=== PATIENT | male | born 1960 | race Caucasian/White ===

== ENCOUNTER 2017-03-20 13:31 | Emergency (ER) | payer OTHER ==
[~2017-03-20] VITALS: Ht 160 cm; Wt 68.0 kg
[~2017-03-20 13:31] MED LIST: ALLERGY10 M1 PO; ANT12.5 PO; COZAAR25 M PO; GLYBURIDE2.5 M PO; JANUVIA100 MG PO; L40 PO; OMEPRAZOLE40 MG PO; PRED-PAK 455 MG PO; PROMETHAZINE D118 ML PO; SIMVASTATIN40 MG PO; TEN25 PO; XARELTO20 M1 PO; [UNRECOGNIZED DRUG - OTHER] NS
[2017-03-20 16:04] VITALS: BP 128/75
== END 2017-03-20 16:04 | disposition home or self-care (01) ==
LOC: ED 13:31
DX: K64.4 Residual hemorrhoidal skin tags (principal); M19.90 Unspecified osteoarthritis, unspecified site; K21.9 Gastro-esophageal reflux disease without esophagitis; E78.00 Pure hypercholesterolemia, unspecified; E11.43 Type 2 diabetes mellitus with diabetic autonomic (poly)neuropathy; K31.84 Gastroparesis; I10 Essential (primary) hypertension; Z79.4 Long term (current) use of insulin; Z79.84 Long term (current) use of oral hypoglycemic drugs

== ENCOUNTER 2017-03-21 14:12 | Emergency (ER) | payer OTHER ==
[2017-03-21 14:36] VITALS: BP 129/84
== END 2017-03-21 16:03 | disposition home or self-care (01) ==
LOC: ED 14:12
DX: K64.4 Residual hemorrhoidal skin tags (principal); K21.9 Gastro-esophageal reflux disease without esophagitis; I10 Essential (primary) hypertension; E11.9 Type 2 diabetes mellitus without complications; E78.5 Hyperlipidemia, unspecified; K57.90 Diverticulosis of intestine, part unspecified, without perforation or abscess without bleeding; M19.90 Unspecified osteoarthritis, unspecified site; Z88.0 Allergy status to penicillin

== ENCOUNTER 2018-09-12 13:51 | Emergency (ER) | payer OTHER ==
[~2018-09-12] VITALS: Ht 157.5 cm; Wt 72.1 kg
[2018-09-12 14:07] VITALS: Ht 157.5 cm; Wt 72.1 kg
[2018-09-12 15:36] LABS: BASOPHIL % 0.7 % (0-2); PLATELET COUNT 211 x10^3mcL (130-400); RED CELL DISTRIBUTION WIDTH 13.9 % (11.5-14.5)
[2018-09-12 15:42] LABS: CARBON DIOXIDE 30.3 mmol/L (21-32); CHLORIDE SERUM 105 mmol/L (98-107); CREATININE SERUM 0.8 mg/dL (0.7-1.3); GFR1 > 60 mL/min; GLUCOSE SERUM 222 mg/dL (74-106); POTASSIUM SERUM 4.4 mmol/L (3.5-5.1); SODIUM SERUM 138 mmol/L (136-145)
[2018-09-12 15:46] LABS: ALKALINE PHOSPHATASE 98 U/L (46-116); ALT/SGPT 60 U/L (16-63); AST/SGOT 40 U/L (15-37); BILIRUBIN TOTAL 0.2 mg/dL (0.20-1.00)
[2018-09-12 15:48] LABS: ALBUMIN 2.5 g/dL (3.4-5.0)
[2018-09-12 17:31] VITALS: BP 135/87
== END 2018-09-12 17:31 | disposition home or self-care (01) ==
LOC: ED 13:51
PROVIDERS: Emergency Medicine
DX: R07.89 Other chest pain (principal); E11.9 Type 2 diabetes mellitus without complications; I10 Essential (primary) hypertension; K21.9 Gastro-esophageal reflux disease without esophagitis; E78.00 Pure hypercholesterolemia, unspecified; I82.409 Acute embolism and thrombosis of unspecified deep veins of unspecified lower extremity
CPT/HCPCS: 36415; 85378

== ENCOUNTER → 2018-12-25 | Outpatient (CLI) | payer OTHER, MEDICAID | END | disposition home or self-care (01) | LOC: US 11:17 | PROC: B54DZZZ Ultrasonography of Bilateral Lower Extremity Veins (ICD-10-PCS; principal; 2018-12-25) | PROC: B44HZZZ Ultrasonography of Bilateral Lower Extremity Arteries (ICD-10-PCS; 2018-12-25) | DX: I73.9 Peripheral vascular disease, unspecified (principal); I83.813 Varicose veins of bilateral lower extremities with pain; I82.409 Acute embolism and thrombosis of unspecified deep veins of unspecified lower extremity ==

== ENCOUNTER 2019-02-04 12:29 | Emergency (ER) | payer OTHER, MEDICAID ==
[~2019-02-04] VITALS: Ht 160 cm; Wt 73.7 kg
[2019-02-04 12:37] VITALS: BP 111/66; Ht 160 cm; Wt 73.7 kg
== END 2019-02-04 13:40 | disposition home or self-care (01) ==
LOC: ED 12:29
DX: L03.031 Cellulitis of right toe (principal); I10 Essential (primary) hypertension; E11.9 Type 2 diabetes mellitus without complications; K21.9 Gastro-esophageal reflux disease without esophagitis; E78.00 Pure hypercholesterolemia, unspecified

== ENCOUNTER 2019-02-27 10:55 | Emergency (ER) | payer OTHER, MEDICAID ==
[~2019-02-27] VITALS: Ht 154.9 cm; Wt 75.3 kg
[2019-02-27 11:04] VITALS: Ht 154.9 cm; Wt 75.3 kg
[2019-02-27 12:21] LABS: BASOPHIL % 0.5 % (0-2); PLATELET COUNT 228 x10^3mcL (130-400); RED CELL DISTRIBUTION WIDTH 14.4 % (11.5-14.5)
[2019-02-27 12:33] LABS: CALCIUM 7.4 mg/dL (8.5-10.1); CARBON DIOXIDE 27.2 mmol/L (21-32); CHLORIDE SERUM 111 mmol/L (98-107); CREATININE SERUM 1.2 mg/dL (0.7-1.3); GFR1 > 60 mL/min; GLUCOSE SERUM 137 mg/dL (74-106); POTASSIUM SERUM 4.7 mmol/L (3.5-5.1); SODIUM SERUM 146 mmol/L (136-145)
[2019-02-27 12:44] LABS: ALKALINE PHOSPHATASE 82 U/L (46-116); ALT/SGPT 27 U/L (16-63); AST/SGOT 28 U/L (15-37); BILIRUBIN TOTAL 0.1 mg/dL (0.20-1.00)
[2019-02-27 12:56] LABS: ALBUMIN 1.3 g/dL (3.4-5.0); TOTAL PROTEIN, SERUM 5.2 g/dL (6.4-8.2)
[2019-02-27 14:58] VITALS: BP 150/88
== END 2019-02-27 14:59 | disposition home or self-care (01) ==
LOC: ED 10:55
PROVIDERS: Emergency Medicine
DX: R80.9 Proteinuria, unspecified (principal); E88.09 Other disorders of plasma-protein metabolism, not elsewhere classified; I10 Essential (primary) hypertension; E11.9 Type 2 diabetes mellitus without complications; K21.9 Gastro-esophageal reflux disease without esophagitis
CPT/HCPCS: 36415; 83880

== ENCOUNTER 2019-07-31 11:55 | Emergency (ER) | payer OTHER ==
[~2019-07-31] VITALS: Ht 157.5 cm; Wt 69.9 kg
[2019-07-31 12:06] VITALS: BP 152/101; Ht 157.5 cm; Wt 69.9 kg
== END 2019-07-31 13:45 | disposition home or self-care (01) ==
LOC: ED 11:55
DX: I82.90 Acute embolism and thrombosis of unspecified vein (principal); E11.9 Type 2 diabetes mellitus without complications; I10 Essential (primary) hypertension; K21.9 Gastro-esophageal reflux disease without esophagitis

== ENCOUNTER → 2019-08-01 | Outpatient (CLI) | payer OTHER | END | disposition home or self-care (01) | LOC: RD 16:29 → EDSTATUS 17:19 | PROC: B54DZZZ Ultrasonography of Bilateral Lower Extremity Veins (ICD-10-PCS; principal; 2019-08-01) | PROC: B44HZZZ Ultrasonography of Bilateral Lower Extremity Arteries (ICD-10-PCS; 2019-08-01) | DX: I73.9 Peripheral vascular disease, unspecified (principal); I83.813 Varicose veins of bilateral lower extremities with pain; I82.409 Acute embolism and thrombosis of unspecified deep veins of unspecified lower extremity ==

== ENCOUNTER 2019-08-04 15:55 | Emergency (ER) | payer OTHER ==
[~2019-08-04] VITALS: Ht 152.4 cm; Wt 68.9 kg
[2019-08-04 16:02] VITALS: Ht 152.4 cm; Wt 68.9 kg
--- NOTE | 2019-08-04 16:08 | NUR ---
EKG IN PROGRESS
--- NOTE | 2019-08-04 17:25 | NUR ---
PT AAOX4. ACCOMPANIED BY SISTER. C/O EXCESSIVE SWEATING AND CHEST PAIN STARTED ABOUT 4 HOURS AGO. DENIES FEVERS/CHILLS N/V/D. PT IS A DIABETIC, NEHA CHAPIN THIS MORNING.
[2019-08-04 17:45] LABS: BASOPHIL % 0.4 % (0-2); PLATELET COUNT 373 x10^3mcL (130-400); RED CELL DISTRIBUTION WIDTH 14.5 % (11.5-14.5)
[2019-08-04 18:01] LABS: CALCIUM 7.8 mg/dL (8.5-10.1); CARBON DIOXIDE 22.7 mmol/L (21-32); CREATININE SERUM 1.4 mg/dL (0.7-1.3); POTASSIUM SERUM 4.7 mmol/L (3.5-5.1)
[2019-08-04 18:05] LABS: BILIRUBIN TOTAL 0.14 mg/dL (0.20-1.00); TOTAL PROTEIN, SERUM 6.2 g/dL (6.4-8.2)
[2019-08-04 18:13] LABS: ALBUMIN 1.4 g/dL (3.4-5.0)
--- NOTE | 2019-08-04 19:15 | NUR ---
Received report from NOE Posadas for continuity of care. Pt AAOX4,VSS, RR even and unlabored,Nad noted.Pt denies Chest pain and any pain at this time.awaiting for hospital room assignment. will continue to monitor.
[2019-08-04 20:06] LABS: LIPASE 393 IU/L (73-393); MAGNESIUM 1.7 mg/dL (1.8-2.4)
[2019-08-04 20:10] LABS: AMYLASE 165 U/L (25-115); CHOLESTEROL 323 mg/dL (<200); CHOLESTEROL/HDL RATIO 10.1; HDL CHOLESTEROL 32 mg/dL (40-60); TRIGLYCERIDES 790 mg/dL (<150)
[2019-08-04 22:00] VITALS: BP 134/86
== END 2019-08-04 22:00 | disposition left against medical advice (07) ==
LOC: ED 15:55 → DU 18:30 → ED 18:30
PROVIDERS: Internal Medicine; Student in an Organized Health Care Education/Training Program
DX: R07.89 Other chest pain (principal); R42 Dizziness and giddiness; I10 Essential (primary) hypertension; E11.9 Type 2 diabetes mellitus without complications; M19.90 Unspecified osteoarthritis, unspecified site; K21.9 Gastro-esophageal reflux disease without esophagitis; E78.00 Pure hypercholesterolemia, unspecified
CPT/HCPCS: 36415; 82962; 83880; 87804

== ENCOUNTER → 2020-04-16 | Outpatient (CLI) | payer OTHER | END | disposition home or self-care (01) | LOC: US 11:17 | PROC: BT43ZZZ Ultrasonography of Bilateral Kidneys (ICD-10-PCS; principal; 2020-04-16) | DX: E11.21 Type 2 diabetes mellitus with diabetic nephropathy (principal) ==

== ENCOUNTER 2020-06-02 17:26 | Inpatient (IN) | payer OTHER ==
[~2020-06-02] VITALS: Ht 165.1 cm; Wt 72.6 kg
[2020-06-02 17:33] VITALS: Ht 165.1 cm; Wt 72.6 kg
[2020-06-02 19:23] LABS: RED CELL DISTRIBUTION WIDTH 14.4 % (11.5-14.5)
[2020-06-02 19:38] LABS: BASOPHIL % 1.2 % (0-2); PLATELET COUNT 268 x10^3mcL (130-400)
[2020-06-02 19:54] LABS: CALCIUM 7.7 mg/dL (8.5-10.1); CARBON DIOXIDE 20.5 mmol/L (21-32); CREATININE SERUM 2.3 mg/dL (0.7-1.3); POTASSIUM SERUM 3.9 mmol/L (3.5-5.1)
[2020-06-02 20:00] LABS: BILIRUBIN TOTAL 1.5 mg/dL (0.20-1.00)
[2020-06-02 20:01] LABS: ALBUMIN 1.7 g/dL (3.4-5.0); TOTAL PROTEIN, SERUM 5.8 g/dL (6.4-8.2)
[2020-06-02] MEDS ORDERED: MAAL PO (22:14)
[2020-06-02] MEDS ORDERED: MULTIVITAMIN1 SGL PO (22:14)
[2020-06-03 00:05] LABS: CHOLESTEROL/HDL RATIO 3.9; MAGNESIUM 2.2 mg/dL (1.8-2.4); PHOSPHOROUS 2.2 mg/dL (2.5-4.9)
[2020-06-03 00:09] LABS: urine erythrocyte 1+ (NEGATIVE)
[2020-06-03 00:14] LABS: microscopic required? YES
[2020-06-03 00:25] LABS: T3 TOTAL 1.2 ng/mL
[2020-06-03 00:30] LABS: AMPHETAMINE QUAL UR NONE DETECTED (See below)
[2020-06-03 00:41] LABS: FREE T4 1.07 ng/dL (0.76-1.46); FREE THYROXINE INDEX 3.3 ug/dL (1.4-4.5); T4(THYROXINE) 8.2 ug/dL (4.7-13.3)
[2020-06-03 04:30] VITALS: BP 135/82
[2020-06-03 05:30] VITALS: BP 116/72
[2020-06-03 08:27] VITALS: BP 122/79
[2020-06-03 09:30] LABS: BILIRUBIN TOTAL 3.3 mg/dL (0.20-1.00); CALCIUM 7.2 mg/dL (8.5-10.1); CARBON DIOXIDE 19.6 mmol/L (21-32); CREATININE SERUM 2.3 mg/dL (0.7-1.3); POTASSIUM SERUM 5.1 mmol/L (3.5-5.1)
[2020-06-03 10:12] LABS: ALBUMIN 1.2 g/dL (3.4-5.0); TOTAL PROTEIN, SERUM 4.2 g/dL (6.4-8.2)
[2020-06-03 10:30] LABS: BASOPHIL % 0.4 % (0-2); RED CELL DISTRIBUTION WIDTH 13.8 % (11.5-14.5)
[2020-06-03 10:39] LABS: PLATELET COUNT 259 x10^3mcL (130-400)
[2020-06-03 12:12] VITALS: BP 121/73
[2020-06-03 16:30] VITALS: BP 119/68
[2020-06-03 20:42] VITALS: BP 125/72
[2020-06-04 05:57] VITALS: BP 142/75
[2020-06-04 06:55] LABS: BASOPHIL % 0.6 % (0-2); PLATELET COUNT 208 x10^3mcL (130-400); RED CELL DISTRIBUTION WIDTH 14.5 % (11.5-14.5)
[2020-06-04 07:33] LABS: BILIRUBIN TOTAL 2.8 mg/dL (0.20-1.00); CALCIUM 7.4 mg/dL (8.5-10.1); CREATININE SERUM 2.3 mg/dL (0.7-1.3); PHOSPHOROUS 2.2 mg/dL (2.5-4.9); POTASSIUM SERUM 3.6 mmol/L (3.5-5.1); TOTAL PROTEIN, SERUM 4.5 g/dL (6.4-8.2)
[2020-06-04 08:44] VITALS: BP 111/79; BP 139/109
[2020-06-04 12:16] VITALS: BP 139/87
[2020-06-04 16:03] VITALS: BP 133/85
[2020-06-04 20:07] VITALS: BP 127/79
[2020-06-05 05:40] VITALS: BP 137/103
[2020-06-05 07:38] LABS: BASOPHIL % 0.8 % (0-2); PLATELET COUNT 202 x10^3mcL (130-400)
[2020-06-05 08:02] LABS: RED CELL DISTRIBUTION WIDTH 14.7 % (11.5-14.5)
[2020-06-05 08:10] LABS: CALCIUM 7.7 mg/dL (8.5-10.1); CREATININE SERUM 2.3 mg/dL (0.7-1.3); PHOSPHOROUS 2.1 mg/dL (2.5-4.9); POTASSIUM SERUM 3.8 mmol/L (3.5-5.1)
[2020-06-05 09:03] VITALS: BP 146/81
[2020-06-05 11:58] LABS: BILIRUBIN DIRECT 1.23 mg/dL (0.0-0.2); BILIRUBIN TOTAL 1.51 mg/dL (0.20-1.00)
[2020-06-05 12:01] LABS: ALBUMIN 0.9 g/dL (3.4-5.0); TOTAL PROTEIN, SERUM 4.4 g/dL (6.4-8.2)
[2020-06-05 12:50] VITALS: BP 149/71
[2020-06-05 17:51] VITALS: BP 146/94
[2020-06-05 21:43] VITALS: BP 150/86
[2020-06-06 05:20] VITALS: BP 124/85
[2020-06-06 08:31] VITALS: BP 155/83
[2020-06-06 08:51] LABS: CALCIUM 8.3 mg/dL (8.5-10.1); CREATININE SERUM 2.2 mg/dL (0.7-1.3); POTASSIUM SERUM 3.9 mmol/L (3.5-5.1)
[2020-06-06 12:55] VITALS: BP 162/99
[2020-06-06 17:16] VITALS: BP 151/85
[2020-06-06 20:43] VITALS: BP 141/77
[2020-06-07 05:49] VITALS: BP 106/76
[2020-06-07 07:58] LABS: BILIRUBIN TOTAL 0.6 mg/dL (0.20-1.00); CALCIUM 7.6 mg/dL (8.5-10.1); CARBON DIOXIDE 21.7 mmol/L (21-32); CREATININE SERUM 2.3 mg/dL (0.7-1.3); POTASSIUM SERUM 4.4 mmol/L (3.5-5.1)
[2020-06-07 08:05] LABS: ALBUMIN 1.1 g/dL (3.4-5.0); TOTAL PROTEIN, SERUM 4.9 g/dL (6.4-8.2)
[2020-06-07 08:15] VITALS: BP 131/73
[2020-06-07 09:07] LABS: BASOPHIL % 0.2 % (0-2); PLATELET COUNT 224 x10^3mcL (130-400)
[2020-06-07 09:32] LABS: RED CELL DISTRIBUTION WIDTH 15.3 % (11.5-14.5)
[2020-06-07 18:59] VITALS: BP 178/95
[2020-06-07 20:52] VITALS: BP 149/86
[2020-06-08 05:18] VITALS: BP 147/85
[2020-06-08 07:54] LABS: CREATININE SERUM 2.3 mg/dL (0.7-1.3); POTASSIUM SERUM 4.1 mmol/L (3.5-5.1)
[2020-06-08 07:56] LABS: PLATELET COUNT 253 x10^3mcL (130-400); RED CELL DISTRIBUTION WIDTH 14.2 % (11.5-14.5)
[2020-06-08 08:02] VITALS: BP 112/93
[2020-06-08] MEDS ORDERED: NORCO1 TA2 PO (11:12)
[2020-06-08 11:40] VITALS: BP 112/93
[2020-06-08 12:23] VITALS: BP 167/106
== END 2020-06-08 11:50 | disposition home or self-care (01) | DRG 417 ==
LOC: ED 17:26 → MU 22:59 → DU 22:59 → MU 06-03 12:00
PROVIDERS: Emergency Medicine; Internal Medicine; Internal Medicine Gastroenterology; Surgery; ADMIT Internal Medicine; ATTEND Internal Medicine
PROC: BF131ZZ Fluoroscopy of Gallbladder and Bile Ducts using Low Osmolar Contrast (ICD-10-PCS; 2020-06-06)
PROC: 0FT44ZZ Resection of Gallbladder, Percutaneous Endoscopic Approach (ICD-10-PCS; principal; 2020-06-06 14:00)
DX: K80.00 Calculus of gallbladder with acute cholecystitis without obstruction (principal); K85.10 Biliary acute pancreatitis without necrosis or infection; N17.0 Acute kidney failure with tubular necrosis; E43 Unspecified severe protein-calorie malnutrition; Z20.828 Contact with and (suspected) exposure to other viral communicable diseases; E78.00 Pure hypercholesterolemia, unspecified; E11.43 Type 2 diabetes mellitus with diabetic autonomic (poly)neuropathy; K31.84 Gastroparesis; M19.90 Unspecified osteoarthritis, unspecified site; E83.51 Hypocalcemia; E83.39 Other disorders of phosphorus metabolism; I12.9 Hypertensive chronic kidney disease with stage 1 through stage 4 chronic kidney disease, or unspecified chronic kidney disease; N18.30 Chronic kidney disease, stage 3 unspecified; E11.22 Type 2 diabetes mellitus with diabetic chronic kidney disease; K57.30 Diverticulosis of large intestine without perforation or abscess without bleeding; K21.00 Gastro-esophageal reflux disease with esophagitis, without bleeding; E78.5 Hyperlipidemia, unspecified; Z79.84 Long term (current) use of oral hypoglycemic drugs; Z82.49 Family history of ischemic heart disease and other diseases of the circulatory system; Z84.1 Family history of disorders of kidney and ureter; Z68.26 Body mass index [BMI] 26.0-26.9, adult; Z79.899 Other long term (current) drug therapy
CPT/HCPCS: 82962; 83880; 84439; C1887; C9113; G0378; J0330; J0696; J1170; J2250; J2405; J2543; J3010; J3490; J7030; J7120; Q0162; Q9967